=== PATIENT | male | born 1955 | race Hispanic/Latino ===

== ENCOUNTER 2020-12-01 18:13 | Emergency (ER) | payer MEDICARE ==
--- NOTE | 2020-12-01 18:48 | RAD ---
Exam: 3 views left RIBS HISTORY: Fall and pain. FINDINGS: No fracture, cortical irregularity or periosteal reaction IMPRESSION: No fracture.
[2020-12-01] MEDS ORDERED: Ketorolac Tromethamine 30 MG/ML VIAL ONE (20:03)
== END 2020-12-01 20:20 | disposition home or self-care (01) ==
LOC: ERS 18:13
DX: S20.02XA Contusion of left breast, initial encounter (principal); E78.5 Hyperlipidemia, unspecified; I10 Essential (primary) hypertension; W01.198A Fall on same level from slipping, tripping and stumbling with subsequent striking against other object, initial encounter
CPT/HCPCS: 96372; J1885